=== PATIENT | male | born 1955 | race Caucasian/White ===

== ENCOUNTER 2024-07-08 07:05 | Emergency (ER) | payer MEDICARE, OTHER ==
[~2024-07-08] VITALS: Ht 185.4 cm; Wt 109.0 kg
[2024-07-08] MEDS ORDERED: ATOR40TA75 PO (07:19)
[2024-07-08] MEDS: ONDANSETRON 4MG ORAL DISINTEGRATING TAB PO ONE (07:25)
[2024-07-08 11:20] VITALS: TEMP 97.4
[2024-07-08] MEDS: NS (Normal Saline) 0.9% 1,000 ML IV ONE (11:35)
[2024-07-08 12:00] LABS: BASO % 0.2 % (0.0-1.0); HEMATOCRIT 46.2 % (42.0-52.0); HEMOGLOBIN 15.9 g/dl (13.5-17.5); LYMPH # 0.4 10^3/uL (1.5-5.0); LYMPH % 4.1 % (24.0-44.0); MEAN CORPUSCULAR HEMOGLOBIN 32.2 pg (27.0-33.0); MEAN CORPUSCULAR HGB CONC 34.4 g/dl (32.0-36.5); MEAN CORPUSCULAR VOLUME 93.5 fl (80.0-96.0); MONO # 0.6 10^3/uL (0.0-0.8); MONO % 5.9 % (2.0-8.0); NEUTROPHILS # 9.4 10^3/uL (1.5-8.5); NEUTROPHILS % 89.5 % (36.0-66.0); PLATELET COUNT, AUTOMATED 203 10^3/uL (150-450); RED BLOOD COUNT 4.94 10^6/uL (4.30-6.10); WHITE BLOOD COUNT 10.5 10^3/uL (4.0-10.0)
[2024-07-08] MEDS: OMEPRAZOLE 20MG CAP PO ONE (12:06)
[2024-07-08] MEDS: METOCLOPRAMIDE INJ 10MG/2ML VIAL IV ONE (12:06)
[2024-07-08] MEDS: MAALOX 30 ML SUSP *UDC PO ONE (12:07)
[2024-07-08] MEDS: SUCRALFATE SUSP 1GM/10ML UD PO ONE (12:08)
[2024-07-08] MEDS ORDERED: ONDA-282 PO (13:33)
[2024-07-08 13:45] VITALS: BP 126/66; O2SAT 98
== END 2024-07-08 13:46 | disposition home or self-care (01) ==
LOC: M ED 07:05
DX: E86.0 Dehydration (principal); A09 Infectious gastroenteritis and colitis, unspecified; B34.8 Other viral infections of unspecified site; E78.5 Hyperlipidemia, unspecified; K21.9 Gastro-esophageal reflux disease without esophagitis; Z79.899 Other long term (current) drug therapy
CPT/HCPCS: 80047; 85025; 87486; 87507; 87581; 87633; 87798; 96361; 96374; 99284; J2765